=== PATIENT | female | born 1935 | race Caucasian/White ===

== ENCOUNTER 2017-02-15 16:45 | Emergency (ER) | payer MEDICARE ==
--- NOTE | 2017-02-15 18:05 | ER PHYSICIAN DOCUMENTATION ---
Physician Documentation [facility] Name:Anjana Daly Age:81 yrs Sex:Female :1935 Arrival Date:02/15/2017 Time:16:45 Bed1 Private MD:Amelia Villar ED, [place] Disposition: 02/15/17 17:44 Discharged to Home/Self Care. Impression: Cat Bite. - Condition is Good. - Discharge Instructions: BITE Cat - CAT BITE. - Prescriptions for Augmentin 875- 125 mg Oral Tablet - take 1 tablet by ORAL route every 12 hours for 10 days; 20 tablet. - Medical Reconciliation form form. - Follow up: Emergency Department; When: As needed; Reason: Worsening of condition. - Problem is new. - Symptoms are unchanged. HPI: 02/15 17:44 This 81 yrs old Female presents to ER via Private Vehicle with complaints of sc Cat Bite - ARM. 17:44 The patient was bitten on the Left first web space, by a cat, while approaching the sc animal. Onset: The symptom(s)/episode began/occurred 28 hour(s) ago. Animal information: The animal was reported to appear healthy. Animal's vaccinations are up to date. The animal is known and can be quarantined, Animal control has been notified. Infection risk factors: bite to the hand. Secondary to the bite the patient reports an abrasion, unsure if rear claw or bite, was catching cat to go to vet for routine shots. Historical: - Allergies: No known drug Allergies; - Home Meds: 1. fenofibrate 54 mg oral tab 1 tab once daily 2. spiriva 3. fluoxetine 10 mg oral cap 1 capsule once daily 4. Lipitor 10 mg oral tab 1 tab once daily 5. amlodipine 5 mg oral tab 1 tab once daily 6. levothyroxine 75 mcg oral cap 1 cap once daily 7. omeprazole 20 mg oral cpDR 1 cap once daily 8. Proventil Oral 9. o2 10. multivitamin oral cap 1 daily for Vitamin Deficiency Prevention 11. aspirin 81 mg oral chew 1 tab once daily - PMHx: DEPRESSION; carotid bruit; hypoxemia; osteopenia; colon polyp; GERD; EMPHYSEMA; BRONCHITIS; CAD; HYPERTENSION; hearing loss; benign paroxysmal positional vertigo; CATARACTS; high triglycerides; vitamin d deficiency; acquired hypothyroidism; PANCREATITIS; shortness of breath; - PSHx: Tonsillectomy; - Tetanus: < 10 years. - Ebola Screening: : Patient negative for fever greater than or equal to 101.5 degrees Fahrenheit, and additional compatible Ebola Virus Disease symptoms. Patient denies exposure to infectious person. Patient denies travel to an Ebola-affected area in the 21 days before illness onset. . - Immunization history: Pneumococcal vaccine is up to date, Flu Vaccine < 1 year. - Social history: Smoking status: Patient states former smoker of tobacco. ROS: 17:46 Constitutional: Negative for fever, chills, and weight loss. sc Eyes: Negative for injury, pain, redness, and discharge. ENT: Negative for injury, pain, and discharge. Neck: Negative for injury, pain, and swelling. Cardiovascular: Negative for chest pain, palpitations, and edema. Respiratory: Negative for shortness of breath, cough, wheezing, and pleuritic chest pain. Back: Negative for injury and pain. MS/Extremity: Negative for injury and deformity. 17:46 Neuro: Negative for headache, weakness, numbness, tingling, and seizure. sc 17:46 Skin: Positive for abrasion(s). Exam: 17:46 Skin: Appearance: injury, abrasion(s), contusion(s), that are superficial, of the Left sc first web space, no erythema or welling 28 hrs out. Vital Signs: 16:55 BP 112 / 70; Pulse 95; Resp 16; Temp 97.7(O); Pulse Ox 91% on R/A; Weight 61.23 kg; lp Height 5 ft. 4 in. (162.56 cm); Pain 0/10; 16:55 Body Mass Index 23.17 (61.23 kg, 162.56 cm) lp MDM: 17:22 Patient medically screened. sc 17:47 Rabies Status: Rabies immunization is not indicated. Data reviewed: vital signs, nurses sc notes, and as a result, I will discharge patient. Counseling: I had a detailed discussion with the patient and/or guardian regarding: the historical points, exam findings, and any diagnostic results supporting the discharge/admit diagnosis, the need for outpatient follow up, to return to the emergency department if symptoms worsen or persist or if there are any questions or concerns that arise at home. Dispensed Medications: No medications were administered Signatures: Jennifer Mae, BARB RN lp Rick Braden MD MD wa Abhishek, Mari
--- NOTE | 2017-02-15 18:05 | ER NURSING DOCUMENTATION ---
Nurse's Notes [facility] Name:Anjana Daly Age:81 yrs Sex:Female :1935 Arrival Date:02/15/2017 Time:16:45 Bed1 Private MD:Amelia Villar Diagnosis:Cat Bite Presentation: 02/15 16:51 Acuity: CAROLE 4 rh 16:56 Presenting complaint: Patient states: L hand cat bite. Transition of care: Home. lp 16:56 Method Of Arrival: Private Vehicle lp Triage Assessment: 17:12 Bite description: bite sustained to Left first web space by a cat, animal information: lp vaccination(s) is current. Compartment Syndrome symptoms: Unable to determine. General: Appears in no apparent distress, Behavior is appropriate for age. Pain: Denies pain. EENT: No deficits noted. Neuro: No deficits noted. Cardiovascular: No deficits noted. Respiratory: No deficits noted. GI: No deficits noted. : No deficits noted. Derm: No deficits noted. Musculoskeletal: No deficits noted. Historical: - Allergies: No known drug Allergies; - Home Meds: 1. fenofibrate 54 mg oral tab 1 tab once daily 2. spiriva 3. fluoxetine 10 mg oral cap 1 capsule once daily 4. Lipitor 10 mg oral tab 1 tab once daily 5. amlodipine 5 mg oral tab 1 tab once daily 6. levothyroxine 75 mcg oral cap 1 cap once daily 7. omeprazole 20 mg oral cpDR 1 cap once daily 8. Proventil Oral 9. o2 10. multivitamin oral cap 1 daily for Vitamin Deficiency Prevention 11. aspirin 81 mg oral chew 1 tab once daily - PMHx: DEPRESSION; carotid bruit; hypoxemia; osteopenia; colon polyp; GERD; EMPHYSEMA; BRONCHITIS; CAD; HYPERTENSION; hearing loss; benign paroxysmal positional vertigo; CATARACTS; high triglycerides; vitamin d deficiency; acquired hypothyroidism; PANCREATITIS; shortness of breath; - PSHx: Tonsillectomy; - Tetanus: < 10 years. - Ebola Screening: : Patient negative for fever greater than or equal to 101.5 degrees Fahrenheit, and additional compatible Ebola Virus Disease symptoms. Patient denies exposure to infectious person. Patient denies travel to an Ebola-affected area in the 21 days before illness onset. . - Immunization history: Pneumococcal vaccine is up to date, Flu Vaccine < 1 year. - Social history: Smoking status: Patient states former smoker of tobacco. Screenin:15 Infectious Disease Risk None. Abuse screen: Denies threats or abuse. Denies injuries lp from another. Nutritional screening: No deficits noted. Assessment: 17:15 Compartment Syndrome symptoms: Unable to determine. lp 17:16 Derm: Skin has lesions on L hand lesion where bite occured Skin is echymossis. lp Vital Signs: 16:55 BP 112 / 70; Pulse 95; Resp 16; Temp 97.7(O); Pulse Ox 91% on R/A; Weight 61.23 kg; lp Height 5 ft. 4 in. (162.56 cm); Pain 0/10; 16:55 Body Mass Index 23.17 (61.23 kg, 162.56 cm) lp ED Course: 16:47 Patient arrived in ED. lm3 16:47 Amelia iVllar MD is Private Physician. 3 16:51 Triage completed. 16:56 Jennifer Mae RN is Primary Nurse. lp 17:[address] Braden notified. lp 17:15 Valuables Remains with patient Patient has correct armband on for positive lp identification. Bed in low position. Call light in reach. Side rails up X 1. 17:22 Rick Braden MD is Attending Physician. sc Administered Medications: No medications were administered Outcome: 17:44 Discharge ordered by . ut 18:05 Discharged to home ambulatory. 18:05 Condition: good 18:05 Instructed on discharge instructions, follow up and referral plans. medication usage. 18:05 Patient left the ED. 02/16 10:59 Discharge F/U Call: Spoke with: patient. Have you filled your prescriptions? yes. lp Have you made a f/u appointment? yes Overall Care on a scale of 1-10 with 10 being the best care, you rate our care as: the rating of 10. What is the one thing you feel we could do to improve? Patient's answer: Much better than yesterday Signatures: Jennifer Mae RN RN Rick Braden MD MD ut Mari Weiss Ely Berry 3
== END 2017-02-15 18:05 | disposition home or self-care (01) ==
LOC: ER 16:45
DX: S60.572A Other superficial bite of hand of left hand, initial encounter (principal); W55.01XA Bitten by cat, initial encounter; I10 Essential (primary) hypertension; I25.10 Atherosclerotic heart disease of native coronary artery without angina pectoris; Z79.899 Other long term (current) drug therapy; Z79.82 Long term (current) use of aspirin
CPT/HCPCS: 99281